=== PATIENT | female | born 1990 | race Caucasian/White ===

== ENCOUNTER → 2020-05-07 13:52 | Outpatient (BNVA) | payer OTHER, SELFPAY | PROVIDERS: PCP Nurse Practitioner Family; Visit Provider Nurse Practitioner Family | DX: Z20.828 Contact with and (suspected) exposure to other viral communicable diseases (principal) | CPT/HCPCS: 87635 ==

== ENCOUNTER 2020-06-25 14:48 | Emergency (ER) | payer SELFPAY ==
[2020-06-25 14:57] VITALS: BP 122/75; PULSE 92; RESP 18; TEMP 36.5; O2SAT 97; BMI 28.5
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
--- NOTE | 2020-06-25 16:10 | XR_ITS ---
WS: [id number] Exam: XR finger LT min 2V 32310 Date/Time of Exam: 06/25/2020 4:37 PM Reason For Exam: post reduction x-ray Previously noted PIP joint dislocation of the fifth finger has been reduced. Articular relationships are restored. No fracture is seen. XR/XR finger LT min 2V 00715 IMPRESSION: 1. Successful reduction of previously noted PIP joint dislocation of the left f ifth finger.
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
[2020-06-25] MEDS: HYDROcodone-acetaminophen 5-325 mg Tablet 1 TAB PO (17:25)
[2020-06-25] MEDS: lidocaine 1% INJ 20 mL INJECTION (17:26)
[2020-06-25 17:59] VITALS: BP 115/78; PULSE 83; RESP 14; O2SAT 100
--- NOTE | 2020-06-26 10:04 | DCPLANNER ---
Addendum entered by Esther Churchill 07/10/20 15:46: analytical manager called ortho clinic to confirm that a follow up appointment was scheduled for patient. analytical manager spoke with Elena, was told that the clinic was unable to reach patient to schedule an appointment. Original Note: analytical manager had message to schedule a followup appointment for patient with ortho. analytical manager called the ortho clinic, spoke with Elena, gave clinic patients information. analytical manager was told that patients information would be printed and reviewed. Clinic will call patient with appointment information.
== END 2020-06-25 17:59 | disposition home or self-care (01) ==
PROVIDERS: Emergency Provider Nurse Practitioner Family; PCP Nurse Practitioner Family
DX: S63.287A Dislocation of proximal interphalangeal joint of left little finger, initial encounter (principal); X50.9XXA Other and unspecified overexertion or strenuous movements or postures, initial encounter; F17.210 Nicotine dependence, cigarettes, uncomplicated
CPT/HCPCS: 26770; 73140; 99283; J3490

== ENCOUNTER 2020-08-08 14:39 | Emergency (ER) | payer SELFPAY ==
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
[2020-08-08 14:46] VITALS: BP 107/7; PULSE 83; RESP 18; TEMP 36.6; O2SAT 99; BMI 27.1
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
[2020-08-08 14:51] VITALS: RESP 15
[2020-08-08] MEDS: lidocaine 2% INJ 20 mL INJECTION (15:11)
[2020-08-08 15:44] VITALS: RESP 15
== END 2020-08-08 15:44 | disposition home or self-care (01) ==
PROVIDERS: Emergency Provider Physician Assistant
DX: S67.197A Crushing injury of left little finger, initial encounter (principal); S61.217A Laceration without foreign body of left little finger without damage to nail, initial encounter; F17.210 Nicotine dependence, cigarettes, uncomplicated; W23.0XXA Caught, crushed, jammed, or pinched between moving objects, initial encounter
CPT/HCPCS: 12001; 73140; 99282

== ENCOUNTER 2021-02-24 18:35 | Emergency (ER) | payer SELFPAY ==
[2021-02-24 18:52] VITALS: BP 149/103; PULSE 113; RESP 15; TEMP 37.3; O2SAT 96; BMI 29.1
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
[2021-02-24] MEDS: iohexol 350 mg/mL 100 mL Btl IV (20:35)
[2021-02-24 21:26] LABS: Basophils % 0.2 %; Eosinophils # 0.1 10^3/uL (0.0-0.8); Hematocrit 43.9 % (42.0-52.0); Hemoglobin 15.1 g/dL (11.7-16.6); Lymphocytes # 1.8 10^3/uL (0.8-4.8); Lymphocytes % 12.6 %; Mean Corpuscular HGB Conc 34.4 g/dL (30.0-36.0); Mean Corpuscular Hemoglobin 30.3 pg (28.0-34.0); Mean Corpuscular Volume 88.2 fl (80-94); Mean Platelet Volume 9.7 fL (7.4-10.4); Monocytes # 0.9 10^3/uL (0.2-0.9); Neutrophils # 11.28 10^3/uL (1.8-7.7); Neutrophils % 79.8 %; Nucleated Red Blood Cells % 0 %; Platelet Count 308 10^3/cmm (130-400); Red Blood Count 4.98 10^6/uL (4.1-5.3); Red Cell Distribution Width 12.4 % (12.1-15.1); White Blood Count 14.1 10^3/uL (4.0-10.0)
[2021-02-24 21:58] LABS: Alanine Aminotransferase 30 U/L (0-41); Albumin Level 4.7 g/dL (3.5-5.2); Alkaline Phosphatase 83 IU/L (40-130); Chloride 99 mmol/L (98-107); Potassium 4.1 mmol/L (3.5-5.1); Sodium 137 mmol/L (136-145)
[2021-02-24 22:09] LABS: Anion Gap 16.1 (5-19); Aspartate Amino Transferase 27 U/L (0-40); Blood Urea Nitrogen 8 mg/dL (6-20); Calcium 8.9 mg/dL (8.5-10.5); Carbon Dioxide 25 mmol/L (22-29); Globulin 2.8 g/dL (1.3-4.6); Glucose 91 mg/dL (65-115); Total Bilirubin 0.8 mg/dL (0.15-1.2); Total Protein 7.5 g/dL (6.6-8.7)
[2021-02-24 22:18] LABS: Osmolality Calculated 282 mOsm/kg (285-295)
[2021-02-25 00:33] VITALS: BP 142/100; PULSE 120; O2SAT 98
--- NOTE | 2021-04-22 16:26 | PC.SOCIAL ---
Addendum entered by Cammie Sow, RN 04/23/21 09:21: Called [facility] this am and per Donnell they did receive the referral. Cyn will review and get patient scheduled. Original Note: Snow from Law office called and asked about referral to Neurosurgery on this patient. There is not an order entered to consult case management to arrange this. Esther MEREDITH CM is out of office today and the rest of the week. Called [facility] clinic and per Cyn they did not receive a referral did verify some images were uploaded to [facility] through [employer] but not the ones from this visit. Faxed information requesting that an appt be expedited. She will try and get him scheduled as soon as possible. Asked [facility] to upload images all three: CTA Head/ Neck, CT Head and CT Cervical spine to [facility] through [employer]. Verified this was completed. Will call Cyn back to notify her that a confirmation was received that fax was transmitted successfully tomorrow office is now closed. Sent email to Esther MEREDITH CM to follow up on this when she returns next week to be sure this was scheduled.
== END 2021-02-24 22:55 | disposition home or self-care (01) ==
PROVIDERS: Emergency Provider Physician Assistant
DX: S12.401A Unspecified nondisplaced fracture of fifth cervical vertebra, initial encounter for closed fracture (principal); S01.312A Laceration without foreign body of left ear, initial encounter; S01.81XA Laceration without foreign body of other part of head, initial encounter; V49.40XA Driver injured in collision with unspecified motor vehicles in traffic accident, initial encounter; F17.210 Nicotine dependence, cigarettes, uncomplicated
CPT/HCPCS: 12011; 70450; 70496; 70498; 72125; 80053; 85025; 99283; Q9967

== ENCOUNTER 2021-08-21 16:00 | Emergency (ER) | payer SELFPAY ==
[2021-08-21 16:06] VITALS: BP 122/88; PULSE 84; RESP 16; TEMP 36.9; O2SAT 99; BMI 28.8
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
[2021-08-21 17:35] VITALS: BP 138/95; PULSE 82; RESP 16; O2SAT 100
--- NOTE | 2021-08-21 17:35 | PC.NURSE ---
16G REMOVED FROM LEFT AC.
== END 2021-08-21 17:36 | disposition home or self-care (01) ==
PROVIDERS: Emergency Provider Family Medicine
DX: F17.210 Nicotine dependence, cigarettes, uncomplicated (principal); S01.01XA Laceration without foreign body of scalp, initial encounter; W22.8XXA Striking against or struck by other objects, initial encounter
CPT/HCPCS: 12002; 70450; 99283

== ENCOUNTER → 2023-06-25 12:56 | Outpatient (BNVA) | payer SELFPAY | PROVIDERS: Visit Provider Emergency Medicine | DX: R68.89 Other general symptoms and signs (principal) | CPT/HCPCS: 87400 ==